=== PATIENT | male | born 1965 | race Caucasian/White ===

== ENCOUNTER 2023-11-25 09:46 | Day surgery (SDC) | payer BC, OTHER ==
[~2023-11-25] VITALS: Ht 195.6 cm; Wt 125.1 kg
[2023-11-25] VITALS (9 sets, daily range): BP systolic 92–112; BP diastolic 61–74; PULSE 57–81; RESP 12–18; TEMP 98; O2SAT 94–100
[2023-11-25] MEDS ORDERED: AMI200T PO (10:07)
[2023-11-25] MEDS ORDERED: SPIR25TA5 PO (10:07)
[2023-11-25] MEDS ORDERED: METO-384 PO (10:07)
[2023-11-25] MEDS ORDERED: APIX5TAB3 PO (10:07)
[2023-11-25] MEDS ORDERED: SACU1TAB PO (10:07)
[2023-11-25] MEDS ORDERED: FURO40TA4 PO (10:07)
[2023-11-25 10:47] LABS: BASOPHILS % (AUTO) 0.3 % (0-1); EOSINOPHILS % (AUTO) 0.3 % (0-6); HEMOGLOBIN 13.9 g/dl (14.0-17.9); LYMPHOCYTES # (AUTO) 1.7 X10'3 (1.1-4.8); LYMPHOCYTES % (AUTO) 21.7 % (21-51); MEAN CORPUSCULAR HEMOGLOBIN 33.3 PG (27.0-31.0); MEAN CORPUSCULAR HGB CONC 33.8 g/dL (33.0-36.5); MEAN CORPUSCULAR VOLUME 98.7 FL (78-98); MEAN PLATELET VOLUME 7.5 FL (7.4-10.4); MONOCYTES # (AUTO) 0.6 X10'3 (0-0.9); MONOCYTES % (AUTO) 7.8 % (2-12); NEUTROPHILS # (AUTO) 5.6 X10'3 (1.8-7.7); NEUTROPHILS % (AUTO) 69.9 % (42-75); PLATELET COUNT 225 X10'3 (140-440); RED BLOOD COUNT 4.16 X10'6 (4.70-6.10); RED CELL DISTRIBUTION WIDTH 13.1 % (11.5-14.5)
[2023-11-25 10:48] LABS: PROTHROMBIN TIME 10.8 SECONDS (9.0-12.0)
[2023-11-25] MEDS: normal saline 1000ml 1,000 ML IV SCH (10:58)
[2023-11-25 11:20] LABS: ALBUMIN 3.3 G/DL (3.4-5.0); ANION GAP 6 (8-16); BLOOD UREA NITROGEN 17 MG/DL (7-18); BUN/CREATININE RATIO 14.3 (10.0-20.0); CALCIUM 8.9 MG/DL (8.5-10.1); CHLORIDE 105 MMOL/L (99-107); CREATININE 1.19 MG/DL (0.60-1.10); GLUCOSE 107 MG/DL (70-104); SODIUM 138 MMOL/L (135-145); TOTAL CARBON DIOXIDE 26.9 MMOL/L (24-32); eCRCL 86 ML/MIN; eGFR 63 ML/MIN
[2023-11-25] MEDS: fentaNYL/PF 50MCG/1 ML 2ML syringe IV ONE (12:36)
[2023-11-25] MEDS: MIDAZolam 1mg/ml 10ml vial IV ONE (12:36)
== END 2023-11-25 13:30 | disposition home or self-care (01) ==
LOC: SSTAY O 09:46
PROVIDERS: ATTEND Student in an Organized Health Care Education/Training Program
DX: I48.91 Unspecified atrial fibrillation (principal); I50.9 Heart failure, unspecified; I42.0 Dilated cardiomyopathy; Z79.01 Long term (current) use of anticoagulants; Z79.899 Other long term (current) drug therapy
CPT/HCPCS: 36415; 80048; 85025; 85610; 92960; 93005; J2250; J3010; J7030; A4620